=== PATIENT | male | born 2000 | race Caucasian/White ===

== ENCOUNTER 2020-06-06 12:15 | Emergency (ER) | payer MEDICAID ==
[~2020-06-06] VITALS: Ht 172.7 cm; Wt 91.5 kg
[2020-06-06 12:42] VITALS: BP 113/75
[2020-06-06 13:11] LABS: BASOPHILS % (AUTO) 1 % (0-1); EOSINOPHILS % (AUTO) 2 % (1-7); LYMPHOCYTES % (AUTO) 21 % (22-44); MEAN CORPUSCULAR HEMOGLOBIN 29.4 pg (27.5-34.5); MEAN CORPUSCULAR HGB CONC 34.3 g/dL (33.2-36.2); MEAN PLATELET VOLUME 7.2 fL (7.4-10.4); MONOCYTES % (AUTO) 6 % (2-9); NEUTROPHILS % (AUTO) 71 % (42-75); PLATELET COUNT 236 x10^3/uL (130-400); RED BLOOD COUNT 5.65 x10^6/uL (4.38-5.82); RED CELL DISTRIBUTION WIDTH 12.7 % (9.4-14.8)
[2020-06-06 13:15] LABS: MD NO
[2020-06-06 13:24] LABS: CALCIUM 9.2 mg/dL (8.5-10.1); CHLORIDE 109 mmol/L (98-107); CREATININE 0.92 mg/dL (0.7-1.3)
[2020-06-06 13:38] LABS: ANION GAP 5 mmol/L (5-15)
== END 2020-06-06 14:27 | disposition left against medical advice (07) ==
LOC: ED 13:00
DX: R10.32 Left lower quadrant pain (principal); R30.0 Dysuria
CPT/HCPCS: 36415; 80048; 85025; 99283

== ENCOUNTER 2020-11-11 12:21 | Emergency (ER) | payer MEDICAID ==
[~2020-11-11] VITALS: Ht 172.7 cm; Wt 86.9 kg
[2020-11-11 12:26] VITALS: BP 123/84
[2020-11-11 13:08] LABS: BASOPHILS % (AUTO) 0 % (0-1); EOSINOPHILS % (AUTO) 1 % (1-7); LYMPHOCYTES % (AUTO) 28 % (22-44); MEAN CORPUSCULAR HGB CONC 34.6 g/dL (33.2-36.2); MEAN PLATELET VOLUME 7.4 fL (7.4-10.4); MONOCYTES % (AUTO) 6 % (2-9); NEUTROPHILS % (AUTO) 65 % (42-75); PLATELET COUNT 223 x10^3/uL (130-400); RED BLOOD COUNT 5.57 x10^6/uL (4.38-5.82); RED CELL DISTRIBUTION WIDTH 13.1 % (9.4-14.8)
[2020-11-11 13:09] LABS: MD NO
[2020-11-11 13:20] LABS: ALBUMIN 4.5 g/dL (3.4-5.0); ANION GAP 3 mmol/L (5-15); CALCIUM 9.2 mg/dL (8.5-10.1); CHLORIDE 111 mmol/L (98-107)
[2020-11-11 13:26] LABS: ALANINE AMINOTRANSFERASE 26 U/L (12-78); ALKALINE PHOSPHATASE 90 U/L (45-117); BILIRUBIN,TOTAL 0.9 mg/dL (0.2-1.0); CREATININE 0.91 mg/dL (0.7-1.3); TOTAL PROTEIN 7.6 g/dL (6.4-8.2); TROPONIN I < 0.015 ng/mL (0.000-0.045)
--- NOTE | 2020-11-11 13:31 | NUR ---
choreography director: pt from lobby to room 29
== END 2020-11-11 14:36 | disposition home or self-care (01) ==
LOC: ED 14:32
DX: M79.18 Myalgia, other site (principal); R07.89 Other chest pain
CPT/HCPCS: 36415; 71045; 80053; 84484; 85025; 93005; 99285

== ENCOUNTER 2021-01-26 15:22 | Emergency (ER) | payer OTHER, MEDICAID ==
[~2021-01-26] VITALS: Ht 172.7 cm; Wt 86.0 kg
--- NOTE | 2021-01-26 15:48 | NUR ---
PT AMBULATORY TO ROOM 28 W/ C/O CP AND DIZZINESS STARTED 3-4 DAYS AGO. PT STATES HX CP IN THE PAST HAS COME TO THE ED MULTIPLE TIMES FOR SAME AND NEVER HAD ANY HEART ISSUES. PT STATES HX ANXIETY. PT STATES CP IS ON THE R SIDE STATES PAIN IS SPORADIC. PT RESTING ON GURNEY. NADN. MONITORS APPLIED. VSS. WARM BLANKET PROVIDED. CALL LIGHT IN REACH.
[2021-01-26 16:27] VITALS: BP 122/74
== END 2021-01-26 16:39 | disposition home or self-care (01) ==
LOC: ED 15:28
DX: R07.89 Other chest pain (principal); R94.31 Abnormal electrocardiogram [ECG] [EKG]
CPT/HCPCS: 71045; 93005; 99283